=== PATIENT | male | born 1945 | race Caucasian/White ===

== ENCOUNTER 2017-02-20 14:00 | Emergency (ER) | payer MEDICARE, OTHER ==
[~2017-02-20] VITALS: Wt 68.8 kg
--- NOTE | 2017-02-20 15:28 | ERD ---
ER Documentation Chief Complaint Chief Complaint LEFT WRIST INJURY S/P FALL, ABRASION ON FOREHEAD HPI 71y/o male patient with no significant medical history, presents to the emergency department c/o headache, dizziness and mild nausea after direct head trauma while falling from a 5 foot ladder. The patient is also complaining of neck pain, dull, 8/10 and left wrist pain. Overall, the pain is constant. Patient referred almost passing out and feeling disoriented immediately after the event. Denies blurred vision, vomiting, weakness, numbness, no incontinence. Treatment attempted: None. History was given by patient ROS SYSTEMIC symptoms: no fever, chills, no night sweats, no weight loss EYE symptoms: No blurred vision, no eye discharge OTOLARYNGEAL symptoms: No hearing loss. No ear pain, no sore throat CARDIOVASCULAR symptoms: No chest pain or discomfort, no palpitations. PULMONARY symptoms: No dyspnea, no cough, no wheezing. GASTROINTESTINAL symptoms: No abdominal pain, no nausea, no vomiting, no diarrhea MUSCULOSKELETAL symptoms: Per HPI NEUROLOGY symptoms: No confusion, no syncope, no numbness or tingling. SKIN: No rashes Medications Home Meds Active Scripts Hydrocodone/Acetaminophen ([place] 5-325 Tablet) 1 Each Tablet, 1 TAB PO Q8 Y for SEVERE PAIN LEVEL 7-10, #12 TAB Prov:ARNALDO KEANE MD 02/20/17 Ibuprofen* (Motrin*) 400 Mg Tab, 400 MG PO Q8, #30 TAB Prov:ARNALDO KEANE MD 02/20/17 Acetaminophen* (Tylophen*) 500 Mg Capsule, 1 CAP PO Q6H Y for PAIN AND OR ELEVATED TEMP, #20 CAP Prov:ARNALDO KEANE MD 02/20/17 Allergies Allergies: Coded Allergies: No Known Allergy (Unverified , 02/20/17) PMhx/Soc History of Surgery: Yes (R.Knee, Left 4th finger) Hx Alcohol Use: No Hx Substance Use: No Hx Tobacco Use: No Smoking Status: Never smoker Physical Exam Vitals Vital Signs Date Time Temp Pulse Resp B/P Pulse Ox O2 Delivery O2 Flow Rate FiO2 02/20/17 14:09 98.4 68 17 142/91 99 Physical Exam Patient is in mild distress due to pain, vital signs stable. Alert and fully oriented. Head: Left forehead 3 cm hematoma with superficial abrasion. EYES: PERRLA, EOMI, Sclera and conjunctiva appear normal. EARS: Canals clear, tympanic membranes WNL THROAT: Normal oropharynx. NECK: Supple, No lymphadenopathy. Full ROM without pain or tenderness. HEART: RRR, no rubs, murmurs, clicks or gallops. LUNGS: Clear to auscultation. ABDOMEN: Soft, non-tender without masses or hepatosplenomegaly. EXTREMITIES: Left wrist: Edema, tenderness to palpation, decreased extension and flexion. Neurovascular exam intact BACK: Cervical spine: Normal inspection, mild vertebral tenderness to palpation , paracervical muscle spasm noticed. Decreased range of motion for flexion and extension . Thoracic and lumbosacral spine: Full ROM, no deformity, normal back exam NEURO: Cranial nerves grossly intact, no motor or sensory deficit Results 24 hrs Current Medications Medications (Trade) Dose Ordered Sig/Yariel Route PRN Reason Start Time Stop Time Status Last Admin Dose Admin Ketorolac Tromethamine (Toradol) 30 mg ONCE STAT IM 02/20/17 16:54 02/20/17 16:56 DC 02/20/17 17:01 Acetaminophen (Tylenol Tab) 500 mg ONCE STAT PO 02/20/17 16:54 02/20/17 16:56 DC 02/20/17 17:00 [place] [id number] Radiology Main Line: [phone] DIAGNOSTIC IMAGING REPORT Patient: SEGUNDO HU : 1945 Age: 71 Sex: M [id number] [id number] DOS: 02/20/17 [facility] Ordering MD: ARNALDO KEANE MD Location: [facility] Room/Bed: PROCEDURE: CT Brain without contrast. CLINICAL INDICATION: Fall, concussion, pain. TECHNIQUE: A CT of the brain was performed on multidetector high-resolution CT scanner utilizing axial sections from the skull base through the vertex without contrast. The scan was reviewed in soft tissue brain and high frequency resolution bone algorithm windows. Images were reviewed on a high- resolution PACS workstation. One or more the following does reduction techniques were utilized: Automated exposure control, adjustment of the mA/ or kV according to patient's size, or use of iterative reconstruction technique. The exam CTDI = 44.46 mGy and the DLP = 720.23 mGy-cm. DICOM images are available. COMPARISON: None available. FINDINGS: The ventricles and sulci are mildly prominent indicative of volume loss. There is mild cerebellar volume loss. There is no intracranial hemorrhage, mass effect or midline shift. No abnormal intra-axial or extra-axial fluid collections are seen. The crawford/white matter differentiation is preserved. There are mild scattered foci of hypoattenuation in the white matter, which are nonspecific in etiology but likely reflect chronic small vessel ischemic changes. The visualized paranasal sinuses are essentially clear. Left frontal scalp swelling and hematoma are noted without underlying skull fracture. Small with right parietal scalp lipoma is noted. IMPRESSION: 1. No acute intracranial hemorrhage, transcortical infarction or mass effect. 2. Mild chronic small vessel ischemic changes. 3. Mild generalized cerebral and cerebellar volume loss. 4. Left frontal scalp swelling and hematoma are noted without underlying skull fracture. RPTAT: .Nancy Chu MD, MD Date Time Electronically viewed and signed by .Nancy Chu MD, MD on 02/20/2017 16: 31 .N/ CC: ARNALDO KEANE MD [place] [id number] Radiology Main Line: [phone] DIAGNOSTIC IMAGING REPORT Patient: SEGUNDO HU : 1945 Age: 71 Sex: M MR #: [id number] DOS: 02/20/17 [facility] Ordering MD: ARNALDO KEANE MD Location: [facility] Room/Bed: PROCEDURE: CT Cervical Spine without contrast. CLINICAL INDICATION: Fall. Concussion. TECHNIQUE: A CT of the cervical spine was performed on a CT scanner utilizing thin section axial images from the skull base through the thoracic inlet. Sagittal and coronal reformatted images were made. The CTDIvol is 22.14 mGy and the DLP is 446.83 mGycm. One or more of the following dose reduction techniques were utilized: Automated exposure control, adjustment of the mA and/or kV according to patient size, use of iterative reconstruction technique. DICOM images are available. COMPARISON: No prior studies are available for comparison. FINDINGS: Reversal of the normal cervical lordosis. The vertebral bodies are normal in height , density, and alignment .No fracture is evident. C1-2: Normal atlanto-occipital and atlantoaxial articulation. C2-3: The disc is normal in height. No significant disk bulge or protrusion is evident. There is no central canal stenosis or foraminal narrowing. C3-4: Moderate disc space narrowing. Anterior endplate spurring and posterior central disc osteophyte complex formation of 3 mm and bilateral uncovertebral joint spurring right greater than left resulting in moderate bilateral foraminal stenosis and mild central canal stenosis of 8 mm. C4-5: Moderate disc space narrowing and anterior endplate spurring with broad- based central disc osteophyte complex formation to 3 mm. Bilateral uncovertebral joint hypertrophy left greater than right. Moderate to severe left and moderate right foraminal stenosis with mild central canal stenosis. C5-6: Mild disc space narrowing and anterior endplate spurring with calcification of the posterior longitudinal ligament and broad-based central disc osteophyte complex measuring 4 mm in AP dimension with moderate central canal stenosis of 6.4 mm. Bilateral uncovertebral joint hypertrophy left greater than right resulting in moderate left and mild right foraminal stenosis. C6-7: Mild disc space narrowing and minimal posterior disc bulging. No significant disk bulge or protrusion is evident. There is no central canal stenosis or foraminal narrowing. C7-T1: The disc is normal in height. No significant disk bulge or protrusion is evident. There is no central canal stenosis or foraminal narrowing. No paravertebral soft tissue abnormality. The lung apices are clear. IMPRESSION: 1. No fracture or dislocation. Reversal of the normal cervical lordosis with multilevel discogenic changes, degenerative enthesopathy, and posterior longitudinal ligament calcification. No paraspinal soft tissue abnormality. 2. Multilevel spinal canal and foraminal stenosis from C3-C4 through C4-C5 as detailed above. [place] [address] Radiology Main Line: [phone] DIAGNOSTIC IMAGING REPORT Patient: SEGUNDO HU : 1945 Age: 71 Sex: M MR #: [id number] DOS: 02/20/17 [facility] Ordering MD: ARNALDO KEANE MD Location: [facility] Room/Bed: PROCEDURE: Left wrist radiographs. CLINICAL INDICATION: Trauma. Left wrist pain. TECHNIQUE: Four views. Frontal, lateral, and obliques. COMPARISON: No prior studies are available for comparison. FINDINGS: There is an acute subtle nondisplaced fracture through the radial styloid entering the distal articular surface of the radius. There is no other fracture and there is no dislocation. There is mild overlying soft tissue swelling. The soft tissues are otherwise unremarkable. There is no lytic or blastic lesion. There is no radiopaque foreign body. IMPRESSION: 1. Acute nondisplaced fracture through the radial styloid entering the distal articular surface of the radius. 2. Mild overlying soft tissue swelling. 3. Otherwise unremarkable images of the left wrist. RPTAT: QQ .Cameron Khanna MD, MD Date Time Electronically viewed and signed by .Cameron Khanna MD, MD on 02/20/2017 16:42 .R/ CC: ARNALDO KEANE MD Procedures/[facility] 71y/o male patient , presents to the ED c/o headache, dizziness and neck pain after a fall 3 hours prior to arrival. Vital signs stable, Physical exam revealed left frontal hematoma with superficial abrasion, left wrist with tenderness and decreased range of motion but neurovascular exam intact. Differential diagnosis include but not limited to: Concussion, contusion, intracranial bleeding. Pertinent Data: Radiology: CT of the head negative for fractures or intracranial hemorrhage. left wrist XR: 1. Acute nondisplaced fracture through the radial styloid entering the distal articular surface of the radius. Physical examination and clinical presentation consistent most likely with left radial fracture and head concussion. During the ED course the patient remained stable, no new complaints. The patient received Toradol IM with improvement of the symptoms he also had a left arm splint placed. Splint evaluation: Type: Volar Location: Left forearm Position: good alignment in anatomical position Neurovascular intact The patient was told that elevating the injured part will help reduce pain and swelling. Ice packs can decrease pain and promote healing when applied in the first two days after an injury. The pack should be dry on the outside. Apply it for half an hour three to four times a day. If you have an elastic bandage or sling, remove it for bathing, sleep and when the injury is significantly improved. Rewrap the bandage if it feels too loose or too tight. Results and clinical impression discussed with patient who agrees with management. The patient is stable to be treated outpatient and will be discharged home with a Rx for [place] and instructions for follow-up in 2-4 days with an orthopedic surgeon.. Side effects of prescribed medications (headache, rash, nausea, vomiting, diarrhea) were reviewed. Side effects of prescribed opiates (drowsiness, habituation) were reviewed. Side effects of prescribed NSAID medication (GI distress, edema, bleeding, HTN) were reviewed. The patient was instructed to follow up with the primary care provider in the next 48h. If symptoms persist, worsen or new symptoms develop, then patient should return to the ED immediately. Instructions explained and given to patient in [place] with acknowledgment and demonstrated understanding. Disclaimer: Inadvertent spelling and grammatical errors are likely due to EHR/ dictation software use and do not reflect on the overall quality of patient care. Also, please note that the electronic time recorded on this note does not necessarily reflect the actual time of the patient encounter. Departure Diagnosis: Primary Impression: Head injury, closed, with concussion Additional Impression: Left radial fracture Condition: Stable Additional Instructions: Call your primary care doctor TOMORROW for an appointment during the next 1-2 days. See the doctor sooner or return here if your condition worsens before your appointment time. Thank you very much for allowing us to participate in your care. Your health and safety is our top priority at [facility]. Have prescriptions filled and follow precisely the directions on the label. Follow-up with primary care provider during the next 4 days and bring all the information and medications prescribed. If illness has not improved in 2 days, then make an appointment with primary care provider. If the provider is unavailable, return to the Emergency Department immediately. ARNALDO KEANE MD Feb 20, 2017 15:28
--- NOTE | 2017-02-20 16:31 | RADRPT ---
PROCEDURE: CT Brain without contrast. CLINICAL INDICATION: Fall, concussion, pain. TECHNIQUE: A CT of the brain was performed on multidetector high-resolution CT scanner utilizing a xial sections from the skull base through the vertex without contrast. The scan was reviewed in sof t tissue brain and high frequency resolution bone algorithm windows. Images were reviewed on a high -resolution PACS workstation. One or more the following does reduction techniques were utilized: Aut omated exposure control, adjustment of the mA/ or kV according to patient's size, or use of iterativ e reconstruction technique. The exam CTDI = 44.46 mGy and the DLP = 720.23 mGy-cm. DICOM images are available. COMPARISON: None available. FINDINGS: The ventricles and sulci are mildly prominent indicative of volume loss. There is mild cerebellar vo lume loss. There is no intracranial hemorrhage, mass effect or midline shift. No abnormal intra-ax ial or extra-axial fluid collections are seen. The crawford/white matter differentiation is preserved. There are mild scattered foci of hypoattenuation in the white matter, which are nonspecific in etiol ogy but likely reflect chronic small vessel ischemic changes. The visualized paranasal sinuses are e ssentially clear. Left frontal scalp swelling and hematoma are noted without underlying skull fractu re. Small with right parietal scalp lipoma is noted. IMPRESSION: 1. No acute intracranial hemorrhage, transcortical infarction or mass effect. 2. Mild chronic small vessel ischemic changes. 3. Mild generalized cerebral and cerebellar volume loss. 4. Left frontal scalp swelling and hematoma are noted without underlying skull fracture. RPTAT: HH .Nancy Chu MD, MD Date Time Electronically viewed and signed by .Nancy Chu MD, MD on 02/20/2017 16:31 .N/
--- NOTE | 2017-02-20 16:42 | RADRPT ---
PROCEDURE: Left wrist radiographs. CLINICAL INDICATION: Trauma. Left wrist pain. TECHNIQUE: Four views. Frontal, lateral, and obliques. COMPARISON: No prior studies are available for comparison. FINDINGS: There is an acute subtle nondisplaced fracture through the radial styloid entering the distal articu lar surface of the radius. There is no other fracture and there is no dislocation. There is mild overlying soft tissue swelling. The soft tissues are otherwise unremarkable. There is no lytic or blastic lesion. There is no radiopaque foreign body. IMPRESSION: 1. Acute nondisplaced fracture through the radial styloid entering the distal articular surface of the radius. 2. Mild overlying soft tissue swelling. 3. Otherwise unremarkable images of the left wrist. RPTAT: QQ .Cameron Khanna MD, Date Time Electronically viewed and signed by .Cameron Khanna MD, on 02/20/2017 16:42 .R/
--- NOTE | 2017-02-20 16:51 | RADRPT ---
PROCEDURE: CT Cervical Spine without contrast. CLINICAL INDICATION: Fall. Concussion. TECHNIQUE: A CT of the cervical spine was performed on a CT scanner utilizing thin section axial images from the skull base through the thoracic inlet. Sagittal and coronal reformatted images were made. The CTDIvol is 22.14 mGy and the DLP is 446.83 mGycm. One or more of the following dose red uction techniques were utilized: Automated exposure control, adjustment of the mA and/or kV accordi ng to patient size, use of iterative reconstruction technique. DICOM images are available. COMPARISON: No prior studies are available for comparison. FINDINGS: Reversal of the normal cervical lordosis. The vertebral bodies are normal in height , density, and a lignment .No fracture is evident. C1-2: Normal atlanto-occipital and atlantoaxial articulation. C2-3: The disc is normal in height. No significant disk bulge or protrusion is evident. There is no central canal stenosis or foraminal narrowing. C3-4: Moderate disc space narrowing. Anterior endplate spurring and posterior central disc osteophyt e complex formation of 3 mm and bilateral uncovertebral joint spurring right greater than left resul ting in moderate bilateral foraminal stenosis and mild central canal stenosis of 8 mm. C4-5: Moderate disc space narrowing and anterior endplate spurring with broad-based central disc ost eophyte complex formation to 3 mm. Bilateral uncovertebral joint hypertrophy left greater than right . Moderate to severe left and moderate right foraminal stenosis with mild central canal stenosis. C5-6: Mild disc space narrowing and anterior endplate spurring with calcification of the posterior l ongitudinal ligament and broad-based central disc osteophyte complex measuring 4 mm in AP dimension with moderate central canal stenosis of 6.4 mm. Bilateral uncovertebral joint hypertrophy left great er than right resulting in moderate left and mild right foraminal stenosis. C6-7: Mild disc space narrowing and minimal posterior disc bulging. No significant disk bulge or pr otrusion is evident. There is no central canal stenosis or foraminal narrowing. C7-T1: The disc is normal in height. No significant disk bulge or protrusion is evident. There is no central canal stenosis or foraminal narrowing. No paravertebral soft tissue abnormality. The lung apices are clear. IMPRESSION: 1. No fracture or dislocation. Reversal of the normal cervical lordosis with multilevel discogenic c hanges, degenerative enthesopathy, and posterior longitudinal ligament calcification. No paraspinal soft tissue abnormality. 2. Multilevel spinal canal and foraminal stenosis from C3-C4 through C4-C5 as detailed above. RPTAT:AAJJ Wendy Dupree Physician Date Time Electronically viewed and signed by Wendy Dupree Physician on 02/20/2017 16:51 PERRY/
[2017-02-20] MEDS ORDERED: ACETAMINOPHEN 500 MG TAB PO STA (16:54)
[2017-02-20] MEDS ORDERED: KETOROLAC 30 MG INJ IM STA (16:54)
[2017-02-20] MEDS ORDERED: ACET500C5 PO (18:00)
[2017-02-20] MEDS ORDERED: IBUP400T22 PO (18:00)
[2017-02-20] MEDS ORDERED: HYDR-906 PO (18:00)
== END 2017-02-20 18:30 | disposition home or self-care (01) ==
LOC: FTE 14:00
DX: S06.0X9A Concussion with loss of consciousness of unspecified duration, initial encounter (principal); S52.514A Nondisplaced fracture of right radial styloid process, initial encounter for closed fracture; R93.0 Abnormal findings on diagnostic imaging of skull and head, not elsewhere classified; W11.XXXA Fall on and from ladder, initial encounter; Y92.9 Unspecified place or not applicable
CPT/HCPCS: 29125; 70450; 72125; 73110; 96372; 99285; J1885